=== PATIENT | female | born 1965 | race Native Hawaiian/Other Pacific Islander ===

== ENCOUNTER 2023-07-27 12:08 | Day surgery (SDC) | payer BC ==
[~2023-07-27] VITALS: Ht 165.1 cm; Wt 68.0 kg
[~2023-07-27 12:08] MED LIST: DEXMEDETOMIDINE HCL IN SODIUM 4 MCG/ML INJ INJ ONE
[2023-07-27] MEDS ORDERED: LACTATED RINGER'S 1,000 ML IV ONE (12:19)
[2023-07-27] MEDS ORDERED: PROPOFOL 10MG/ML 20ML INJ IV ONE (16:15)
[2023-07-27] MEDS ORDERED: DEXMEDETOMIDINE HCL IN SODIUM 4 MCG/ML INJ INJ ONE (16:15)
== END 2023-07-27 12:45 | disposition home or self-care (01) ==
LOC: OR 12:08
PROVIDERS: ATTEND Internal Medicine Gastroenterology
DX: K57.30 Diverticulosis of large intestine without perforation or abscess without bleeding (principal); K64.0 First degree hemorrhoids
CPT/HCPCS: J2704; J7120